=== PATIENT | female | born 1975 | race Hispanic/Latino ===

== ENCOUNTER 2018-10-02 21:09 | Emergency (ER) | payer OTHER ==
[2018-10-02] MEDS ORDERED: NACL 0.9% 1000 ML 2,000 ML ONE (21:18)
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
[2018-10-02] MEDS ORDERED: NACL 0.9% 1000 ML 3,000 ML IV ONE (21:57)
[2018-10-02] MEDS ORDERED: ZEMURON IV ONE ×2 (21:59→23:00)
[2018-10-02] MEDS ORDERED: AMIDATE IV ONE ×2 (21:59→23:00)
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
[2018-10-02] MEDS ORDERED: NACL 0.9% 500 ML 500 ML ONE (22:26)
[2018-10-02 22:32] VITALS: BP 97/59
[2018-10-02 22:50] LABS: Hematocrit 30.2 % (30.3-42.9); INR 1.25 (0.87-1.13); Mean Corpuscular HGB Conc 33 % (30-34); Mean Corpuscular Volume 85 fl (79-97); Partial Thromboplastin Time 27.1 Sec. (24.2-36.6); Platelet Count 198 K/mm3 (140-440); Red Blood Count 3.55 M/mm3 (3.65-5.03); Red Cell Distribution Width 14.5 % (13.2-15.2)
[2018-10-02] MEDS ORDERED: NACL 0.9% 1000 ML 1,000 ML IV ONE (22:52)
[2018-10-02 22:59] LABS: BUN/Creatinine Ratio 19; Blood Urea Nitrogen 13 mg/dL (7-17)
[2018-10-02 23:00] LABS: Alanine Aminotransferase 13 units/L (7-56); Albumin 3.1 g/dL (3.9-5); Calcium 7.8 mg/dL (8.4-10.2); Hemolysis Index 41
--- NOTE | 2018-10-02 23:39 | XRay Report ---
CHEST 1 VIEW 10:16 PM INDICATION: chest tube. COMPARISON: Earlier the same day FINDINGS: Support devices: Endotracheal tube tip remains at the priya. There is a new left thoracostomy tube, the tip projects over the inferior left hemithorax medially. Heart: Stable. Lungs/Pleura: Perihilar left lung airspace disease which may be due to atelectasis and/or contusion h as improved. Infrahilar opacities on the right are stable. No significant effusion, no definite pneum othorax. Gaseous distention of the stomach is again noted. IMPRESSION: 1. Interval placement of left thoracostomy tube as above. No significant effusion, no pneumothorax. 2. Endotracheal tube tip is at the priya, this could be withdrawn approximately 3-4 cm. Signer Name: Corby Kinney MD Signed: 10/02/2018 11:35 PM Workstation Name: [id number]
== END 2018-10-02 23:04 | disposition other institution (70) ==
LOC: ED 21:09
DX: S01.93XA Puncture wound without foreign body of unspecified part of head, initial encounter (principal); S11.93XA Puncture wound without foreign body of unspecified part of neck, initial encounter; S21.139A Puncture wound without foreign body of unspecified front wall of thorax without penetration into thoracic cavity, initial encounter; X95.9XXA Assault by unspecified firearm discharge, initial encounter; Y93.89 Activity, other specified; Y92.89 Other specified places as the place of occurrence of the external cause; Y99.8 Other external cause status
CPT/HCPCS: 36415; 36430; 71045; 80053; 85027; 85610; 85730; 86850; 86900; 86901; 86920; 94002; 99291; J7030; J7040; P9016